=== PATIENT | male | born 1995 ===

== ENCOUNTER 2017-02-25 14:48 | Emergency (ER) | payer OTHER ==
--- NOTE | 2017-02-25 15:43 | ED ORDER SUMMARY ---
..... Patient: ROBERT GONZALEZ G OrderSheet [facility] VisitID: [id number] [address] [place] [address] 21y, M Registration Date/Time: 02/25/2017 ORDER SHEET Weight: 78 kg (stated) Allergies: No Known Drug Allergy GENERAL ORDERS: Shoulder 2V or more Left Urgent (15:11 02/25/2017 maral VINCENT) (Ack 15:[facility]) (15:29 DDean R.N.) Elbow 3 or 4V Left [facility]15:14 [facility] (15:29 DDean R.N.) MEDICATION ORDERS: IV FLUIDS: ORDER SHEET NOTES: [Electronically signed by Michael Rey DO (15:53 02/25/2017)] [Electronically signed by Susana Baez R.N. (15:55 02/25/2017)] [Electronically locked/signed by Susana Baez R.N. (15:55 02/25/2017)]
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
--- NOTE | 2017-02-25 15:43 | ED ORDER SUMMARY ---
..... Patient: ROBERT GONZALEZ G OrderSheet [facility] VisitID: [id number] [address] [place] [address] 21y, M Registration Date/Time: 02/25/2017 ORDER SHEET Weight: 78 kg (stated) Allergies: No Known Drug Allergy GENERAL ORDERS: Shoulder 2V or more Left Urgent (15:11 02/25/2017 maral VINCENT) (Ack 15:13 [facility] (15:29 DDean R.N.) Elbow 3 or 4V Left Urgent (15:14 [facility]/2017 [facility] ([facility] (15:29 DDean R.N.) MEDICATION ORDERS: IV FLUIDS: ORDER SHEET NOTES: [Electronically signed by Michael Rey DO (15:53 02/25/2017)] [Electronically signed by Susana Baez R.N. (15:55 02/25/2017)] [Electronically locked/signed by Susana Baez R.N. (15:55 02/25/2017)]
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
--- NOTE | 2017-02-25 15:55 | ED MED RECONCILIATION SUMMARY ---
Patient: ROBERT GONZALEZO Pavel Medication Reconciliation Report [facility] VisitID: [id number] [address] [place] [address] 21y, M Registration Date/Time: 02/25/2017 Weight: 78 kg Height/Length: 69 in. BMI: 25.4 ALLERGIES: No Known Drug Allergy The patient's Home Medications are listed below: CONTINUE TAKING THE FOLLOWING MEDICATIONS: Ibuprofen Oral 800 mg, last dose: 2 days ago The source(s) of the original Home Medication information: Not obtained. The following Medications were given to the patient in the Emergency Department: None. The following Medications were prescribed to the patient: Acetaminophen (available over the counter): take according to label instructions. -- Michael Rey DO Motrin (available over the counter): take according to label instructions. -- Michael Rey DO
--- NOTE | 2017-02-25 15:55 | ED MAR SUMMARY ---
..... Medication Administration Record [facility] [address] [place], [place] [id number] Patient: ROBERT GONZALEZ Visit ID: [id number] 21y, M Weight: 78.0 kg Height/Length: 69 in BMI: 25.4 ALLERGIES: No Known Drug Allergy
--- NOTE | 2017-02-25 15:55 | ED MED RECONCILIATION SUMMARY ---
Patient: ROBERT GONZALEZO Pavel Medication Reconciliation Report [facility] VisitID: [id number] [address] [place] [address] 21y, M Registration Date/Time: 02/25/2017 Weight: 78 kg Height/Length: 69 in. BMI: 25.4 ALLERGIES: No Known Drug Allergy The patient's Home Medications are listed below: CONTINUE TAKING THE FOLLOWING MEDICATIONS: Ibuprofen Oral 800 mg, last dose: 2 days ago The source(s) of the original Home Medication information: Not obtained. The following Medications were given to the patient in the Emergency Department: None. The following Medications were prescribed to the patient: Acetaminophen (available over the counter): take according to label instructions. -- Michael Rey DO Motrin (available over the counter): take according to label instructions. -- Michael Rey DO
--- NOTE | 2017-02-25 15:55 | ED MAR SUMMARY ---
..... Medication Administration Record [facility] [address] [place], [place] [id number] Patient: ROBERT GONZALEZ Visit ID: [id number] 21y, M Weight: 78.0 kg Height/Length: 69 in BMI: 25.4 ALLERGIES: No Known Drug Allergy
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
== END 2017-02-25 15:50 | disposition home or self-care (01) ==
LOC: ED SRH 14:48
DX: S53.432A Radial collateral ligament sprain of left elbow, initial encounter (principal); S50.02XA Contusion of left elbow, initial encounter; V13.4XXA Pedal cycle driver injured in collision with car, pick-up truck or van in traffic accident, initial encounter; Y93.55 Activity, bike riding; Y99.9 Unspecified external cause status; Y92.89 Other specified places as the place of occurrence of the external cause